=== PATIENT | male | born 1950 | race Caucasian/White ===

== ENCOUNTER 2018-01-31 18:01 | Emergency (ER) | payer MEDICARE, OTHER ==
[~2018-01-31] VITALS: Ht 172.7 cm; Wt 79.4 kg
[~2018-01-31 18:01] MED LIST: ASPIRIN EC81 M1 PO; CENTRUM SILVER1 EAC4 PO; GLIPIZIDE 5 MG T5 MG PO; GLUCOPHAGE500 MG PO; INVOKANA100 MG PO; LISINOPRIL10 MG PO; LUMIGAN2.5 M1 OP; NORCO 5-325 TA1 EACH PO; TRIAMCINOLONE A80 G2 TOP; VALIUM5 MG PO; ZOCOR 10 MG TAB10 M1 PO
[2018-01-31] MEDS ORDERED: DUREZOL5 ML OTIC (18:15)
[2018-01-31] MEDS ORDERED: ILEVRO1.7 ML OTIC (18:16)
[2018-01-31] MEDS ORDERED: AUGMENTIN 875-1 EACH PO (19:40)
[2018-01-31] MEDS ORDERED: GUAIFEN-CODEINE10 ML PO (19:40)
[2018-01-31] MEDS ORDERED: VENTOLIN HFA 1818 GM INH (19:40)
[2018-01-31 19:57] VITALS: BP 151/80
== END 2018-01-31 19:57 | disposition home or self-care (01) ==
LOC: M.ERS 18:01
DX: J32.0 Chronic maxillary sinusitis (principal); J32.1 Chronic frontal sinusitis; E11.9 Type 2 diabetes mellitus without complications